=== PATIENT | female | born 1955 | race African-American/Black ===

== ENCOUNTER 2018-12-07 09:47 | Emergency (ER) | payer OTHER ==
[~2018-12-07] VITALS: Ht 162.6 cm; Wt 98.4 kg
--- NOTE | 2018-12-07 10:26 | PHYS DOC ---
Past Medical History Past Medical History: Depression, Diabetes-Type II, Hypertension Past Surgical History: Alcohol Use: None Drug Use: None Adult General Chief Complaint Chief Complaint: LOWER EXTREMITY SWELLING HPI HPI Patient is a 63 year old AA female who presents to the emergency department with complaints of left knee pain and swelling for the last month. Patient states that she saw her primary care doctor last week who did x-rays and inf ormed the patient that she appears to have a bone spur in her left knee. Patient denies any recent fall or trauma to her knee. She currently rates the pain a 10 out of 10 on the pain scale, she has been applying ice packs and wearing a knee brace with no relief of her pain. ROS Patient denies any fever, cough, shortness of breath, nausea, vomiting, diarrhea, abdominal pain. She denies any numbness, tingling, or weakness of her lower left extremity. She reports pain with movement of her left knee and swelling to the superior lateral aspect of the knee. She denies any erythema or warmth of her left knee. All other ROS is neg unless otherwise noted in HPI. Review of Systems Review of Systems See Above Allergies Allergies Allergies Coded Allergies Type Severity Reaction Last Updated Verified No Known Drug Allergies 12/07/18 No Physical Exam Physical Exam See Above Constitutional: Well developed, well nourished, no acute distress, non-toxic appearance. [] HENT: Normocephalic, atraumatic, bilateral external ears normal, oropharynx moist, no oral exudates, nose normal. [] Eyes: conjunctiva normal, no discharge. [] Neck: Normal range of motion, no stridor. [] Lungs & Thorax: Respirations even and unlabored, no retractions, no respiratory distress Skin: Warm, dry, no erythema, no rash. [] Extremities:L knee: No bony tenderness, no cyanosis, no clubbing, ROM intact, 1+ edema to superior lateral knee, no erythema, no warmth Neurologic: Alert and oriented X 3, normal motor function, normal sensory function, no focal deficits noted. [] Psychologic: Affect normal, judgement normal, mood normal. [] Current Patient Data Vital Signs Vital Signs Date Time Temp Pulse Resp B/P (MAP) Pulse Ox O2 Delivery O2 Flow Rate FiO2 12/07/18 09:51 98.0 82 18 205/95 (131) 99 Room Air 98.0 EKG EKG [] Radiology/Procedures Radiology/Procedures [] Course & Med Decision Making Course & Med Decision Making Pertinent Labs and Imaging studies reviewed. (See chart for details) dx: Left knee pain, left knee swelling. Patient is a 63-year-old female who presented to the emergency room with complaints of left knee pain for the last month. She reported that her primary care doctor ordered x-rays last week and found a bone spur within her joint. Patient declines x-rays today. We'll prescribe naproxen. Encouraged patient to ice, elevate, and rest the affected extremity. Advised her to wear her knee brace over a pair of leggings since the brace is causing some irritation of her skin. Follow-up with Dr. Albright, call his office to schedule an appointment. Return to the ER if symptoms worsen. Patient verbalized an understanding of home care, medications, follow-up, and return to ED instructions and was in agreement with the plan of care. [] Dragon Disclaimer Dragon Disclaimer This electronic medical record was generated, in whole or in part, using a voice recognition dictation system. Departure Departure Impression: Primary Impression: Left knee pain Disposition: HOME, SELF-CARE Condition: STABLE Referrals: JUHI SCHMITT MD (PCP) Patient Instructions: Knee Pain, [id number] Additional Instructions: Fill prescription(s) and use as directed. Recommend application of ice, elevation, and rest of affected extremity. Wear your splint over a pair of leggings to protect your skin. Follow up with Dr. Albright, tell his office you were evaluated here today. Return to the ER if symptoms worsen. Scripts Naproxen (NAPROXEN) 500 Mg Tablet 1 TAB PO BID for 10 Days, #20 TAB 0 Refills Prov: SHU MODI ENGINE ROOM OPERATOR 12/07/18 Problem Qualifiers Primary Impression: Left knee pain Chronicity: acute Qualified Codes: M25.562 - Pain in left knee SHU MODI ENGINE ROOM OPERATOR Dec 07, 2018 10:26
[2018-12-07] MEDS ORDERED: NAPR-514 PO (10:55)
[2018-12-07 10:57] VITALS: BP 175/88
== END 2018-12-07 10:57 | disposition home or self-care (01) ==
LOC: ER 09:47
DX: M25.562 Pain in left knee (principal); F32.9 Major depressive disorder, single episode, unspecified; E11.9 Type 2 diabetes mellitus without complications; I10 Essential (primary) hypertension; Z98.890 Other specified postprocedural states
CPT/HCPCS: 99282